=== PATIENT | male | born 1980 | race Caucasian/White ===

== ENCOUNTER 2017-04-23 10:25 | Emergency (ER) | payer BC, MEDICAID ==
--- NOTE | 2017-04-23 10:44 | Emergency Department Record ---
History of Present Illness - General Chief complaint: ENT Stated complaint: EAR PAIN Time Seen by Provider: 04/23/17 10:35 Source: Patient Mode of Arrival: Ambulatory Limitations: No limitations - History of Present Illness Initial comments: The patient has a hx of chronic ear infections and has had L ear pain for 2-3 days. He did start himself on Amox that he had at home but it is not helping. He has also been mildly congested but denies any HUSSEIN, fever, ST or neck pain. MD complaint: Ear pain Onset/Timin -: Days(s) Location: L ear Severity: Moderate Severity scale (1-10): 10 Quality: Other Consistency: Constant Improves with: None Worsens with: None Context- Ear: Other - Related Data Home Medications Medication Instructions Recorded Confirmed Last Taken Amoxicillin 500 mg PO TID 04/23/17 04/23/17 04/22/17 Cyclobenzaprine HCl [Flexeril] 5 mg PO TID 04/23/17 04/23/17 04/21/17 Famotidine [Pepcid] 20 mg PO DAILY 04/23/17 04/23/17 04/22/17 Previous Rx's Medication Instructions Recorded Cefdinir [Omnicef] 300 mg PO BID #20 cap 04/23/17 Fluticasone Propionate [Flonase] 2 spray EACH NARES DAILY #1 bottle 04/23/17 Naproxen [Naprosyn] 500 mg PO BID #14 tablet. 04/23/17 Allergies Allergy/AdvReac Type Severity Reaction Status Date / Time acetaminophen [From [place]] Allergy HYPERSENSIT Verified 04/23/17 10:38 IVITY hydrocodone [From [place]] Allergy HYPERSENSIT Verified 04/23/17 10:38 IVITY latex Allergy RASH Verified 04/23/17 10:38 Travel Screening - Travel/Exposure Within Last 30 Days Have you traveled within the last 30 days?: No - Travel/Exposure Within Last Year Have you traveled outside the [place] in the last year?: No - Additonal Travel Details Have you been exposed to anyone with a communicable illness?: No - Travel Symptoms Symptom Screening: None Review of Systems Constitutional: Denies: Chills, Fever Eyes: Denies: Eye discharge ENT: Reports: Ear pain. Denies: Congestion Respiratory: Denies: Cough Past Medical History - SOCIAL HISTORY Smoking Status: Never smoker Alcohol Use: None Drug Use: None - RESPIRATORY Hx Respiratory Disorders: No - CARDIOVASCULAR Hx Cardio Disorders: No - NEURO Hx Neuro Disorders: No - GI Hx GI Disorders: Yes Hx Hiatal Hernia: Yes - Hx Genitourinary Disorders: No - ENDOCRINE Hx Endocrine Disorders: No - MUSCULOSKELETAL Hx Musculoskeletal Disorders: Yes Comment:: scoliosis - PSYCH Hx Psych Problems: No - HEMATOLOGY/ONCOLOGY Hx Hematology/Oncology Disorders: Yes Hx Cancer: Yes (skin) Family Medical History Any Significant Family History?: No Hx Cancer: Mother Hx Heart Disease: Grandparents Hx HTN: Mother, Grandparents Physical Exam - General General Appearance: Alert, Oriented x3, Cooperative, No acute distress - Head Head exam: Atraumatic, Normocephalic, Normal inspection - Eye Eye exam: Normal appearance, PERRL - ENT ENT exam: Normal exam, Mucous membranes moist, Normal external ear exam, Normal orophraynx. negative: TM's normal bilaterally (The bilateral TM's have distorted anatomy. There is bilateral erythema and effusions.) Throat exam: Normal inspection, Other (Neg Mastoid tenderness.). negative: Tonsillar erythema, Tonsillar exudate - Neck Neck exam: Normal inspection, Full ROM. negative: Lymphadenopathy, Meningismus , Tenderness - Respiratory Respiratory exam: Normal lung sounds bilaterally. negative: Respiratory distress - Cardiovascular Cardiovascular Exam: Regular rate, Normal rhythm, Normal heart sounds Course Vital Signs 04/23/17 10:26 Temperature 97.6 F Pulse Rate 105 H Respiratory 16 Rate Blood Pressure 125/73 Pulse Ox 98 - Reevaluation(s) Reevaluation #1: I explained to the patient that he is to recheck with his PCP this week and to obtain a referral to an ENT. 04/23/17 10:48 Disposition Disposition: Discharge Clinical Impression: Otitis media Qualifiers: Otitis media type: unspecified Chronicity: acute Qualified Code(s): H66.90 - Otitis media, unspecified, unspecified ear Disposition: Home, Self-Care Condition: (2) Stable Instructions: Otitis Media (ED) Additional Instructions: Please take the medicines as directed. Please see your PCP in 2-3 days for recheck and to obtain an ENT referral. Return to the ER for any worsening pain, swelling, fever, or headache. Prescriptions: Cefdinir [Omnicef] 300 mg PO BID #20 cap Fluticasone Propionate [Flonase] 2 spray EACH NARES DAILY #1 bottle Naproxen [Naprosyn] 500 mg PO BID #14 tablet.dr Forms: Patient Portal Access Time of Disposition: 10:44 Quality - Quality Measures Quality Measures: N/A - Blood Pressure Screening View Details: Yes Does Patient Have Any of the Following: No Blood Pressure Classification: Pre-Hypertensive BP Reading Systolic Measurement: 125 Diastolic Measurement: 73 Screening for High Blood Pressure: < Pre-Hypertensive BP, F/U Documented > [ G8950] Pre-Hypertensive Follow-up Interventions: Referral to alternative/primary care provider.
== END 2017-04-23 10:55 | disposition home or self-care (01) ==
LOC: ER 10:25
DX: H66.93 Otitis media, unspecified, bilateral (principal)
CPT/HCPCS: 99282

== ENCOUNTER 2018-10-25 18:45 | Emergency (ER) | payer BC, MEDICAID, OTHER ==
--- NOTE | 2018-10-25 19:06 | Emergency Department Record ---
History of Present Illness - General Chief Complaint: Abdominal Pain Stated Complaint: WC/ABD PAIN Time Seen by Provider: 10/25/18 19:00 Source: Patient Mode of Arrival: Ambulatory Limitations: No limitations - History of Present Illness Initial Comments: 38 yo male presents to ED for evaluation of chelsey-umbilical abdominal pain that came on suddenly while a work this afternoon at . 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 Patient went to employee health, was sent to ED to exclude an abdominal wall hernia. Patient denies symptoms other than pain, denies nausea, vomiting, change in stools, or urinary symptoms. Patient denies health problems at his baseline, denies the need for analgesia on examination.. MD Complaint: Abdominal pain Onset/Timin -: Hour(s) Location: Periumbilical Migration to: Periumbilical Severity: Moderate Quality: Aching Consistency: Intermittent Improves With: Nothing Worsens With: Other (palpation) Associated Symptoms: Denies other symptoms - Related Data Allergies Allergy/AdvReac Type Severity Reaction Status Date / Time acetaminophen [From [place]] Allergy HYPERSENSIT Verified 10/25/18 18:58 IVITY hydrocodone [From [place]] Allergy HYPERSENSIT Verified 10/25/18 18:58 IVITY latex Allergy RASH Verified 10/25/18 18:58 Travel Screening - Travel/Exposure Within Last 30 Days Have you traveled within the last 30 days?: No - Travel/Exposure Within Last Year Have you traveled outside the [place] in the last year?: No - Additonal Travel Details Have you been exposed to anyone with a communicable illness?: No - Travel Symptoms Symptom Screening: None Review of Systems Constitutional: Denies: Chills, Fever, Malaise, Night sweats Eyes: Denies: Eye discharge, Eye pain ENT: Denies: Congestion, Ear pain, Epistaxis Respiratory: Denies: Cough, Dyspnea Cardiovascular: Denies: Chest pain, Dyspnea on exertion Endocrine: Denies: Fatigue, Heat or cold intolerance Gastrointestinal: Reports: Abdominal pain. Denies: Nausea, Vomiting Genitourinary: Denies: Incontinence, Retention Musculoskeletal: Denies: Arthralgia, Back pain Skin: Denies: Bruising, Change in color Neurological: Denies: Abnormal gait, Confusion, Headache Psychiatric: Denies: Anxiety Hematological/Lymphatic: Denies: Anemia, Blood Clots Past Medical History - SOCIAL HISTORY Smoking Status: Never smoker Alcohol Use: None Drug Use: None - RESPIRATORY Hx Respiratory Disorders: No - CARDIOVASCULAR Hx Cardio Disorders: No - NEURO Hx Neuro Disorders: No - GI Hx GI Disorders: Yes Hx Reflux: Yes Hx Hiatal Hernia: Yes Hx Irritable Bowel: Yes - Hx Genitourinary Disorders: No - ENDOCRINE Hx Endocrine Disorders: No - MUSCULOSKELETAL Hx Musculoskeletal Disorders: Yes Comment:: scoliosis - PSYCH Hx Psych Problems: No - HEMATOLOGY/ONCOLOGY Hx Hematology/Oncology Disorders: Yes Hx Cancer: Yes (skin) Family Medical History Any Significant Family History?: No Hx Cancer: Mother Hx Heart Disease: Grandparents Hx HTN: Mother, Grandparents Physical Exam - General General Appearance: Alert, Oriented x3, Cooperative, Mild distress Limitations: No limitations - Head Head exam: Atraumatic, Normocephalic, Normal inspection Head exam detail: negative: Abrasion, Contusion, Fuentes's sign, General tenderness, Hematoma, Laceration - Eye Eye exam: Normal appearance. negative: Conjunctival injection, Periorbital swelling, Periorbital tenderness, Scleral icterus - ENT Ear exam: negative: Auricular hematoma, Auricular trauma Nasal Exam: negative: Active bleeding, Discharge, Dried blood, Foreign body Mouth exam: negative: Drooling, Laceration, Muffled voice, Tongue elevation - Neck Neck exam: Normal inspection. negative: Meningismus, Tenderness - Respiratory Respiratory exam: Normal lung sounds bilaterally. negative: Respiratory distress, Rhonchi, Stridor, Wheezes - Cardiovascular Cardiovascular Exam: Regular rate, Normal rhythm, Normal heart sounds - GI/Abdominal GI/Abdominal exam: Soft, Tenderness (Mild-moderate TTP chelsey-umbilical region on examination, no rebound/guarding symptoms are present.). negative: Distended, Rebound, Rigid - Rectal Rectal exam: Deferred - exam: Deferred - Extremities Extremities exam: Normal inspection. negative: Pedal edema, Tenderness - Back Back exam: Denies: CVA tenderness (R), CVA tenderness (L) - Neurological Neurological exam: Alert, Normal gait, Oriented X3 - Psychiatric Psychiatric exam: Normal affect, Normal mood - Skin Skin exam: Normal color. negative: Abrasion Type of lesion: negative: abrasion Course Vital Signs 10/25/18 18:47 Temperature 98.2 F Pulse Rate 83 Respiratory 16 Rate Blood Pressure 124/108 Pulse Ox 96 - Reevaluation(s) Reevaluation #1: 10/25/18 19:05 Patient was seen and examined, will obtain CT imaging the abdomen to exclude hernia vs. rectus sheath hematoma. Patient is in agreement with the plan of care as discussed. Reevaluation #2: 10/25/18 20:13 CT Abdomen/Pelvis: (2) fat containing inguinal hernias, no bowel involvement. (1) small fat-containing umbilical hernia present, no bowel present. Patient was updated on his CT imaging result, appears stable for discharge home with symptomatic care as directed. Will place on work restrictions for 1 week with instructions for follow-up. Disposition Disposition: Discharge Clinical Impression: Abdominal muscle strain Qualifiers: Encounter type: initial encounter Qualified Code(s): S39.011A - Strain of muscle, fascia and tendon of abdomen, initial encounter Disposition: Home, Self-Care Condition: (2) Stable Instructions: Muscle Strain (ED) Additional Instructions: Return to ED if your symptoms worsen or if you have any concerns. Ibuprofen, Ice as directed. Follow-up with your family doctor in 3-5 days as directed. Forms: Patient Portal Access Time of Disposition: 20:16 Quality - Quality Measures Quality Measures: N/A - Blood Pressure Screening Does Patient Have Any of the Following: No Blood Pressure Classification: Hypertensive Reading Systolic Measurement: 124 Diastolic Measurement: 108 Screening for High Blood Pressure: < First Hypertensive BP, F/U Documented > [G8950] First Hypertensive Follow-up Interventions: Referral to alternative/primary care provider.
--- NOTE | 2018-10-28 10:36 | CT SCAN REPORT ---
DATE: 10/25/2018 at 7:09 p.m. EXAM: EMERGENCY CT OF THE ABDOMEN AND PELVIS WITHOUT CONTRAST. HISTORY: UMBILICAL ABDOMINAL PAIN SINCE 10:00 A.M. TODAY. TECHNIQUE: Axial CT scan of the abdomen and pelvis was obtained without oral or intravenous contrast at the referring physician's request. COMPARISON: None. FINDINGS: No calcified gallstones are seen within the gallbladder. No intrarenal calculi or hydronephrosis identified on either side. No hydroureter on either side with no definite ureteral calculus seen on either side, and no bladder calculus evident. There are probably very small bilateral inguinal hernias containing adipose tissue but no bowel. Tiny umbilical hernia containing adipose tissue but no bowel. No other form of abdominal wall hernia seen, and no rectus sheath hematoma evident. Evaluation of the bowel and viscera is extremely limited without oral or intravenous contrast. Given this limitation, no definite hepatic, splenic, adrenal, pancreatic, or renal mass identified. There is a small focus of hazy density in mesentery adjacent to a segment of the sigmoid colon. No definite inflamed adjacent diverticulum seen, and this could represent some mild epiploic appendagitis. The appendix is visualized and is of normal caliber with no appendicitis evident. No free intraperitoneal air or free intraperitoneal fluid identified. IMPRESSION: 1. VERY TINY MIDLINE UMBILICAL HERNIA CONTAINING ADIPOSE TISSUE BUT NO BOWEL. THERE ARE PROBABLY SMALL BILATERAL INGUINAL HERNIAS CONTAINING ADIPOSE TISSUE BUT NO BOWEL WELL. 2. NO OTHER ANTERIOR ABDOMINAL WALL HERNIAS IDENTIFIED, AND NO RECTUS SHEATH HEMATOMA EVIDENT. 3. THERE MAY BE A SMALL FOCUS OF EPIPLOIC APPENDAGITIS IN THE SIGMOID COLON ANTERIORLY. 4. NO FREE AIR OR FREE FLUID EVIDENT. Job Number: [id number] [facility]
== END 2018-10-25 20:25 | disposition home or self-care (01) ==
LOC: ER 18:45
DX: S39.011A Strain of muscle, fascia and tendon of abdomen, initial encounter (principal); X50.9XXA Other and unspecified overexertion or strenuous movements or postures, initial encounter; Y93.89 Activity, other specified; Y92.63 Factory as the place of occurrence of the external cause; Y99.0 Civilian activity done for income or pay
CPT/HCPCS: 74176; 99283

== ENCOUNTER 2019-04-04 21:14 | Emergency (ER) | payer BC, OTHER ==
[2019-04-04] MEDS ORDERED: ASPIRIN 81 MG CHEWABLE TABLET PO ONE (21:18)
[2019-04-04] MEDS ORDERED: MAGNESIUM HYDROXIDE/AL HYDROX 30 ML, LIDOCAINE VISC 2% 15ML 15 ML PO ONE ×2 (21:29)
[2019-04-04 21:31] LABS: ABSOLUTE NEUTROPHIL COUNT 3.75; BASO % 0.6 % (0-6); EOS % 4.5 % (0-6); GRAN % 44.7 % (47-80); HEMATOCRIT 46.9 % (42.0-52.0); HEMOGLOBIN 16.3 gm/dl (14.0-18.0); MEAN CELL VOLUME 84.1 fl (81-97); MEAN CORPUSCULAR HEMOGLOBIN 29.2 pg (27-33); MEAN CORPUSCULAR HGB CONC 34.8 g/dl (32-36); MEAN PLATELET VOLUME 9.8 fl (7.4-10.4); MONO % 11.2 % (0-9); PLATELET COUNT 300 K/uL (130-400); RED BLOOD COUNT 5.58 M/uL (4.40-5.70); RED CELL DISTRIBUTION WIDTH 12.8 % (11.5-14.5); WHITE BLOOD COUNT W/O DIFF 8.4 K/uL (4.2-12.2)
--- NOTE | 2019-04-04 21:34 | Emergency Department Record ---
History of Present Illness - General Chief Complaint: Chest Pain Stated Complaint: CHEST PAIN Time Seen by Provider: 04/04/19 21:18 Source: Patient Mode of Arrival: Ambulatory Limitations: No limitations - History of Present Illness Initial Comments: 38 yo male presents to ED for evaluation of chest discomfort for 1 month. Patient reports "burning" that radiates substernally to the back of his throat, denies worsening of his symptoms with exertion. Patient denies previous history of heart or lung problems, does report history of GERD. Patient denies cough, fever, or recent illness. Patient also denies history of DVT/PE, denies calf pain, swelling. patient does reports family history of MT at age 57 years (grandfather). MD Complaint: Chest pain Onset/Timin -: Month(s) Pain Location: Substernal Pain Radiation: Neck Severity: Moderate Quality: Other Consistency: Constant Improves With: Nothing Worsens With: Nothing Other Symptoms: Burping Treatments Prior to Arrival: None - Related Data Previous Rx's Medication Instructions Recorded Pantoprazole Sodium [Protonix] 40 mg PO DAILY #30 tablet. 04/04/19 Allergies Allergy/AdvReac Type Severity Reaction Status Date / Time hydrocodone [From [place]] Allergy HYPERSENSIT Verified 10/25/18 18:58 IVITY latex Allergy RASH Verified 10/25/18 18:58 Review of Systems Constitutional: Denies: Chills, Fever, Malaise, Night sweats Eyes: Denies: Eye discharge, Eye pain ENT: Denies: Congestion, Ear pain, Epistaxis Respiratory: Denies: Cough, Dyspnea Cardiovascular: Reports: Chest pain. Denies: Dyspnea on exertion, Palpitations, Syncope Endocrine: Denies: Fatigue, Heat or cold intolerance Gastrointestinal: Denies: Abdominal pain, Nausea, Vomiting Genitourinary: Denies: Incontinence, Retention Musculoskeletal: Denies: Arthralgia, Back pain, Gout, Joint swelling Skin: Denies: Bruising, Change in color Neurological: Denies: Abnormal gait, Confusion, Headache, Seizure Psychiatric: Denies: Anxiety Hematological/Lymphatic: Denies: Anemia, Blood Clots Past Medical History - SOCIAL HISTORY Smoking Status: Never smoker Drug Use: None - RESPIRATORY Hx Respiratory Disorders: No - CARDIOVASCULAR Hx Cardio Disorders: No - NEURO Hx Neuro Disorders: No - GI Hx GI Disorders: Yes Hx Reflux: Yes Hx Hiatal Hernia: Yes Hx Irritable Bowel: Yes - Hx Genitourinary Disorders: No - ENDOCRINE Hx Endocrine Disorders: No - MUSCULOSKELETAL Hx Musculoskeletal Disorders: Yes Comment:: scoliosis - PSYCH Hx Psych Problems: No - HEMATOLOGY/ONCOLOGY Hx Hematology/Oncology Disorders: Yes Hx Cancer: Yes (skin) Family Medical History Hx Cancer: Mother Hx Heart Disease: Grandparents Hx HTN: Mother, Grandparents Physical Exam - General General Appearance: Alert, Oriented x3, Cooperative, No acute distress Limitations: No limitations - Head Head exam: Atraumatic, Normocephalic, Normal inspection Head exam detail: negative: Abrasion, Contusion, Fuentes's sign, General tenderness, Hematoma, Laceration - Eye Eye exam: Normal appearance. negative: Conjunctival injection, Periorbital swelling, Periorbital tenderness, Scleral icterus - ENT Ear exam: negative: Auricular hematoma, Auricular trauma Nasal Exam: negative: Active bleeding, Discharge, Dried blood, Foreign body Mouth exam: negative: Drooling, Laceration, Muffled voice, Tongue elevation - Neck Neck exam: Normal inspection. negative: Meningismus, Tenderness - Respiratory Respiratory exam: Normal lung sounds bilaterally. negative: Rales, Respiratory distress, Rhonchi, Stridor - Cardiovascular Cardiovascular Exam: Regular rate, Normal rhythm, Normal heart sounds - GI/Abdominal GI/Abdominal exam: Soft. negative: Rebound, Rigid, Tenderness - Rectal Rectal exam: Deferred - exam: Deferred - Extremities Extremities exam: Normal inspection. negative: Pedal edema, Tenderness - Back Back exam: Denies: CVA tenderness (R), CVA tenderness (L) - Neurological Neurological exam: Alert, Normal gait, Oriented X3 - Psychiatric Psychiatric exam: Normal affect, Normal mood - Skin Skin exam: Normal color. negative: Abrasion Type of lesion: negative: abrasion Course - Reevaluation(s) Reevaluation #1: 04/04/19 21:35 EKG: NSR 77 Normal axis, normal intervals No acute ST-T wave changes Reevaluation #2: 04/04/19 22:05 Laboratory studies were reviewed and appear grossly unremarkable for an acute process. PERC clinical decision rule was applied, and the patient does not have any of the following: -Age > 50 years -Pulse > 100 -Oxygen Saturation < 94% -History of Hemoptysis -Unilateral leg swelling -History or PE/DVT -Recent surgery or Trauma -Oral contraceptive/Hormone use The patient was deemed to be low-risk for cardiac disease based on the patients history and evaluation in the ED, HEART Score was applied and found to be 1. As a result, repeat Troponin in 3-hours appears appropriate and if negative for myocardial injury, the patient may be discharged home with appropriate outpatie nt follow-up for further evaluation. Patient was updated on all results, reports that he is feeling much improved following GI cocktail. Will obtain 3-hour troponin to exclude myocardial injury. Reevaluation #3: 04/05/19 00:54 Repeat Troponin appears negative for myocardial injury. Patient appears stable for discharge at this time. Medical Decision Making - Lab Data Result diagrams: 04/04/19 21:20 04/04/19 21:20 Disposition Disposition: Discharge Clinical Impression: Atypical chest pain Disposition: Home, Self-Care Condition: (2) Stable Instructions: Chest Pain (ED) Additional Instructions: Return to ED if your symptoms worsen or if you have any concerns. Protonix as directed. Follow-up with your family doctor in 3-5 days as directed. Prescriptions: Pantoprazole Sodium [Protonix] 40 mg PO DAILY #30 tablet.dr Forms: Patient Portal Access Time of Disposition: 00:55 Quality - Quality Measures Quality Measures: N/A - Blood Pressure Screening Does Patient Have Any of the Following: No Blood Pressure Classification: Hypertensive Reading Systolic Measurement: 144 Diastolic Measurement: 98 Screening for High Blood Pressure: < First Hypertensive BP, F/U Documented > [G8950] First Hypertensive Follow-up Interventions: Referral to alternative/primary care provider.
[2019-04-04 21:45] LABS: BLOOD UREA NITROGEN 19 mg/dL (6-20); CREATININE 0.8 mg/dL (0.7-1.2); EST GLOMERULAR FILTRATION RATE > 60 mL/min
[2019-04-04 21:46] LABS: TOTAL PROTEIN 7.7 g/dL (6.6-8.7)
[2019-04-04 21:48] LABS: GLUCOSE,RANDOM 100 mg/dL (74-109)
[2019-04-04 21:51] LABS: ALB/GLOB RATIO 1.6 (1.1-1.8); ALBUMIN 4.7 g/dL (4.0-5.0); ALKALINE PHOSPHATASE 81 U/L (40-129); ALT/SGPT 33 U/L (<41); AST/SGOT 26 U/L (10.0-50.0)
== END 2019-04-05 01:04 | disposition home or self-care (01) ==
LOC: ER 21:14
DX: R07.89 Other chest pain (principal)
CPT/HCPCS: 80053; 84484; 85025; 93005; 93010; 99284